=== PATIENT | male | born 1950 | race Caucasian/White ===

== ENCOUNTER 2023-05-11 14:30 | Outpatient (CLI) | payer MEDICARE, BC ==
[~2023-05-11 14:30] MED LIST: GADOTERATE MEGLUMINE 7.5 MMOL/15 ML VIAL IV ONE
== END 2023-05-11 23:59 | disposition home or self-care (01) ==
LOC: RAD 14:30
PROVIDERS: ATTEND Specialist
DX: S44.21XA Injury of radial nerve at upper arm level, right arm, initial encounter (principal); M71.121 Other infective bursitis, right elbow; M25.521 Pain in right elbow; M79.89 Other specified soft tissue disorders; M25.411 Effusion, right shoulder; X58.XXXA Exposure to other specified factors, initial encounter; Y93.89 Activity, other specified; Y92.89 Other specified places as the place of occurrence of the external cause; Y99.8 Other external cause status
CPT/HCPCS: 73720; A9575

== ENCOUNTER → 2024-08-15 | Outpatient (CLI) | payer MEDICARE, BC ==
--- NOTE | 2024-08-16 08:21 | CONSULTATION ---
DATE OF CONSULTATION: 08/15/2024 DICTATING PHYSICIAN: Grace Soler M.S., [facility] MODIFIED BARIUM SWALLOW STUDY REPORT REFERRING PHYSICIAN: Vikki Padilla D.O. HISTORY OF PRESENT ILLNESS: The patient is a 73-year-old male and consents to this evaluation. The patient's was present for this evaluation. History was obtained from the patient, the patient's and medical records. The patient reports symptoms of dysphagia including trouble swallowing since his spinal surgery in 12/2023. He had a modified barium swallow study completed at [facility] in 01/2024 and the patient reports that the results were okay at that test, so he has been receiving speech therapy for his voice at [facility] and was recently discharged. He attends the local [facility] class. The patient has been coughing on food and liquid since his surgery on a daily basis and every once in a while on saliva. He feels that when he starts to have difficulty with his swallowing he will then start breathing really heavy. He has lost weight over the past 2 years, going from 230 pounds to 161 pounds. He has a diagnosis of Parkinson's disease. CURRENT DIET: The patient is currently on a regular texture thin liquid diet. MEDICATIONS: Sinemet 25-100 mg 2.5 tablets 3 times daily orally and 2 tablets 2 times daily orally, Sinemet CR 50-200 mg 1 tablet at bedtime orally, entacapone 200 mg 1 tablet 3 times daily orally and 0.5 tablet 2 times daily orally, Mirapex 0.75 mg 1 tablet once daily orally, fluoxetine 20 mg 1 capsule once daily orally, pantoprazole 40 mg 1 tablet twice daily orally, Cialis 20 mg 1 tablet orally p.r.n., AndroGel 1.62% applied 2 pumps to skin daily, multiple vitamins 1 capsule orally once daily, stool softener twice daily, vitamin B12 500 mcg once daily. PARAMETERS: The patient is seated in a lateral 90-degree view and administered the usual protocol of thin and nectar thick liquids, puree and solid consistency as well as self-regulated boluses of thin liquids from a cup. RESULTS: In the oral stage of swallow, lingual strength is mildly reduced and there is a mild oral residue following the initial swallow of the boluses. In the pharyngeal stage of the swallow, there is noted to be vertebral thickening at the level of the C6, the C7, which appears to impact some of the movement of the boluses through the pharyngeal cavity. The tongue base retraction is mild to moderately reduced. Swallow initiation was within functional limits. Elevation of the hyothyroid complex was accomplished with mild to moderately reduced epiglottic inversion and anterior and superior movement of the hyoid. There is a moderate to severe pharyngeal residue for the thin liquid boluses and the patient was noted to then have penetration for the thin liquid boluses on that pharyngeal residue. He would be queued to have multiple swallows, which would then help clear the thin liquid boluses from the pharyngeal cavity. With thicker consistencies, there was a mild to moderate pharyngeal residue following the first swallow. Anterior movement of the posterior pharyngeal wall was observed. The patient was noted to penetrate on thin liquid boluses as mentioned above. The aspiration was not noted. ANTERIOR, POSTERIOR VIEW: In the AP plane, the bolus split symmetrically between the piriform sinuses and no proximal movement was noted. 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 When the patient was queued to take multiple swallows, this would help to clear the bolus from the pharyngeal cavity. DIAGNOSES: R13.12, dysphagia, oropharyngeal phase; R49.0, dysphonia; G20.A2 Parkinson's disease with fluctuating manifestations, unspecified whether dyskinesia present. PATIENT EDUCATION: Immediately following modified barium swallow study, the patient and his were able to view the results. The patient was able to see how the current status of the oral motor and swallowing mechanism decreases his ability to swallow normally. He was educated on a recommendation to swallow at least twice for every bolus that he has for food and liquid. He was also educated on swallowing with intent and diaphragmatic breathing. He was then educated on a recommendation for speech therapy to strengthen the muscles involved in swallowing and agreed to participate at this time. RECOMMENDATIONS: It is recommended that the patient receive concomitant speech/voice and swallowing therapy one time weekly for 12 weeks to improve the strength and range of motion of the swallowing musculature to ensure airway safety protection and prevent aspiration. LONG-TERM GOALS: The patient will maintain adequate hydration/nutrition with optimum safety and efficiency of swallow function on p.o. intake with overt signs and symptoms of aspiration decreased from daily to once weekly for the highest possible diet level. PROGNOSIS: Prognosis for the patient is good in terms of willingness to learn, patient motivation and family support. FUNCTIONAL ORAL INTAKE: The FOIS was administered to establish and document a change in the functional eating activities of this patient over time. This is a 7-point scale with 1 indicating no oral intake and totally tube dependent and 7 indicating total oral intake with no restrictions. This patient received a 7 which indicates total oral intake with no restrictions. G-CODE: [id number]. Thank you very much for asking me to participate in the care of this kind patient. Should you have any questions regarding this evaluation or recommendations, please do not hesitate to contact me at [phone]. During this examination, 4 minutes and 15 seconds of fluoroscopy time and 43.24 CAK mGy were utilized. Grace Soler M.S., [facility] TID: [id number] RECEIPT: [id number] DONALD/OMA/BELEN
== END | disposition home or self-care (01) ==
LOC: RAD 10:19
PROVIDERS: ATTEND Neurological Surgery
DX: R13.12 Dysphagia, oropharyngeal phase (principal); G20.A2 Parkinson's disease without dyskinesia, with fluctuations; R49.0 Dysphonia
CPT/HCPCS: 74230